=== PATIENT | female | born 1960 | race Caucasian/White ===

== ENCOUNTER → 2018-01-10 | Outpatient (CLI) | payer MEDICARE, OTHER ==
--- NOTE | 2018-01-10 14:22 | MR ---
EXAMINATION TYPE: MR foot LT wo con DATE OF EXAM: 01/10/2018 COMPARISON: None HISTORY: Left fifth toe delayed union fracture. Left fourth toe fracture. Recurrent plantar laceratio ns third through fifth toes. Left fifth toe osteomyelitis all per order. Ulcers left fourth and fifth toe with pain and swelling for over 6 weeks. Standard multiplanar, multisequence MRI departmental protocol Multiplanar, multisequence images of the left foot were acquired. FINDINGS: Post contrast imaging was not performed due to patient noncooperation and repetitive moving . Exam noted suboptimal due to significant patient motion on images acquired. Exam is essentially nondiagnostic as there is marked patient motion on images acquired. Marked flexio n in toes is present. IMPRESSION: Nondiagnostic study due to patient noncooperation and motion.
== END | disposition home or self-care (01) ==
LOC: RADMRIMAIN 13:06
PROVIDERS: ATTEND Podiatrist Foot & Ankle Surgery
DX: M86.8X7 Other osteomyelitis, ankle and foot (principal)

== ENCOUNTER 2018-01-30 10:10 | Day surgery (SDC) | payer MEDICARE, OTHER ==
--- NOTE | 2018-01-30 09:32 | P.GSHP ---
History of Present Illness H&P Date: 01/30/18 CHIEF COMPLAINT: Cholecystitis HISTORY OF PRESENT ILLNESS: The patient is a 57-year-old female who presents with history of epigastric including right upper quadrant abdominal pain. She underwent diagnostic studies for her gallbladder. Separately her clinical picture was consistent with cholecystitis. Now she presents for surgical intervention. She has history of cognitive delay. PAST MEDICAL HISTORY: Please see list PAST SURGICAL HISTORY: Please see list MEDICATIONS: Please see list ALLERGIES: Denies. SOCIAL HISTORY: No illicit drug use or recent tobacco use FAMILY HISTORY: Pertinent for gallbladder disease REVIEW OF ORGAN SYSTEMS: CONSTITUTIONAL: No reports of fevers or chills. HEENT: Denies any troubles with the vision or hearing. ENDOCRINE: Has hypothyroidism. No diabetes. RESPIRATORY: No recent pneumonias. CARDIOVASCULAR: Denies chest pain or palpitations GI: No blood in stools or constipation. MUSCULOSKELETAL: Has occasional joint pain including back pain. NEURO: No seizure disorders or headaches. No recent stroke. PSYCH: Has cognitive delay. GENITOURINARY: No active blood in urine. No urinary hesitancy. HEMATOLOGIC: No personal or family history of DVTs or pulmonary emboli. SKIN: No skin cancer. PHYSICAL EXAM: VITAL SIGNS: Afebrile vital signs stable GENERAL: Well-developed pleasant in no acute distress. HEENT: No scleral icterus. Extraocular movements grossly intact. Moist buccal mucosa. NECK: Supple without lymphadenopathy. CHEST: Unlabored respirations. Equal bilateral excursions. CARDIOVASCULAR: Regular rate regular rhythm rhythm. Distal 2+ pulses. ABDOMEN: Soft, nondistended. Tender along the epigastrium and right upper quadrant. MUSCULOSKELETAL: No clubbing, cyanosis, or edema. NEURO: Cranial nerves II to XII within normal limits. No focal or lateralizing signs. PSYCH: Alert and oriented to person, place and time. SKIN: Well-perfused good skin turgor. ASSESSMENT: 1. Epigastric and right upper quadrant abdominal pain 2. Chronic cholecystitis 3. Symptomatic gallstones. PLAN: 1. Will need a robotic cholecystectomy possible open. Benefits and risks were described. 2. Heparin for DVT prophylaxis 5000 units. 3. Antibiotic prophylaxis. Past Medical History Past Medical History: GERD/Reflux, Hearing Disorder / Deafness, Hypertension, Liver Disease, Neurologic Disorder, Skin Disorder Additional Past Medical History / Comment(s): TOURETTE'S, MENTALLY HANDICAPPED, NON-VERBAL; FALLS PURPOSEFULLY, HX FOOT FX 07/2017, IN W/C NOW FOR SAFETY. HEP B. LACKS ELASTICITY IN TOES, SKIN BREAKS OPEN. SEEN BY SHARON CRUZ FOR SURGICAL CLEARANCE, HAS 24 HOLTER MONITOR ON, PER CAREGIVER. History of Any Multi-Drug Resistant Organisms: None Reported Additional Past Surgical History / Comment(s): UNKNOWN Past Anesthesia/Blood Transfusion Reactions: Unable to Obtain Additional Psychological History / Comment(s): MENTALLY HANDICAPPED, NON-VERBAL Smoking Status: Unknown if ever smoked Past Alcohol Use History: None Reported Past Drug Use History: Unable to Obtain - Past Family History Father Family Medical History: Coronary Artery Disease (CAD) Medications and Allergies Home Medications Medication Instructions Recorded Confirmed Type Cetirizine HCl [Zyrtec] 10 mg PO DAILY@159901/23/18 01/23/18 History FLUoxetine HCL [PROzac] 60 mg PO DAILY 01/23/18 01/23/18 History Fluticasone Nasal [place] [Flonase 1 spray EA NOSTRIL DAILY@159901/23/18 History Nasal [place]] Gentian Ailin 1 applic TOPICAL Q7D 01/23/18 History Ibuprofen [Motrin] 600 mg PO TID@0700,1599,199901/23/18 01/23/18 History LORazepam [Ativan] 1 mg PO BID@0700,1600 01/23/18 01/23/18 History Lisinopril [Zestril] 5 mg PO DAILY@159901/23/18 01/23/18 History Mirabegron [Myrbetriq] 50 mg PO DAILY@159901/23/18 01/23/18 History Omeprazole [PriLOSEC] 40 mg PO DAILY@199901/23/18 01/23/18 History Ranitidine HCl [Zantac] 150 mg PO BID 01/23/18 01/23/18 History Sodium Chloride Tab 1 gm PO DAILY 01/23/18 01/23/18 History risperiDONE 1 mg PO DAILY@159901/23/18 01/23/18 History risperiDONE [RisperDAL] 2 mg PO DAILY@0700 01/23/18 01/23/18 History Allergies Allergy/AdvReac Type Severity Reaction Status Date / Time aspirin Allergy Unknown Verified 01/23/18 16:32 clarithromycin [From Biaxin] Allergy Unknown Verified 01/23/18 16:32 omega-3 acid ethyl esters Allergy Unknown Verified 01/23/18 18:05 Penicillins Allergy Unknown Verified 01/23/18 16:32 diazepam [From Valium] AdvReac MAKES HER Verified 01/23/18 16:32 HYPER VASCEZE Allergy Unknown Uncoded 01/23/18 16:32
[~2018-01-30 10:10] MED LIST: HEPARIN SODIUM,PORCINE 5,000 UNIT/ML 1 ML VIAL SQ ONE; INDOCYANINE GREEN 25 MG VIAL IV STA; ceFAZolin IN SWFI 2 GM/20 ML SYRINGE IVP ONE
[2018-01-30] MEDS ORDERED: LACTATED RINGERS 1,000 ML IV ONE (10:52)
[2018-01-30] MEDS ORDERED: ONDANSETRON 4 MG/2 ML VIAL IVP ONE (10:52)
[2018-01-30] MEDS ORDERED: DEXAMETHASONE SOD PHOSPHATE 10 MG/ML 1 ML VIAL IV ONE (10:53)
[2018-01-30 11:20] LABS: Anisocytosis Slight; Basophils % (A) 0 %; Eosinophils # (A) 0.1 k/uL (0-0.7); Eosinophils % (A) 3 %; HCT 37.6 % (34.0-46.0); HGB 11.7 gm/dL (11.4-16.0); Hypochromasia Slight; Lymphocytes # (A) 1.9 k/uL (1.0-4.8); Lymphocytes % (A) 34 %; MCH 27.9 pg (25.0-35.0); MCHC 31.2 g/dL (31.0-37.0); MCV 89.4 fL (80.0-100.0); Mean Platelet Volume 7.5; Monocytes # (A) 0.8 k/uL (0-1.0); Monocytes % (A) 14 %; Neutrophils # (A) 2.7 k/uL (1.3-7.7); Neutrophils % (A) 46 %; Platelet Count 242 k/uL (150-450); RBC 4.21 m/uL (3.80-5.40); RDW 16.5 % (11.5-15.5); WBC 5.7 k/uL (3.8-10.6)
[2018-01-30 11:35] LABS: ALT 32 U/L (9-52); AST 42 U/L (14-36); Albumin 4.1 g/dL (3.5-5.0); Alkaline Phosphatase 127 U/L (38-126); Anion Gap 9 mmol/L; Blood Urea Nitrogen 13 mg/dL (7-17); Calcium 9.5 mg/dL (8.4-10.2); Carbon Dioxide 27 mmol/L (22-30); Chloride 103 mmol/L (98-107); Glucose 80 mg/dL (74-99); Sodium 139 mmol/L (137-145); Total Bilirubin 0.5 mg/dL (0.2-1.3); Total Protein 7.4 g/dL (6.3-8.2)
[2018-01-30] MEDS ORDERED: BUPIVACAIN-EPI 0.25%-1:200,000 30 ML VIAL SQ ONE (12:04)
[2018-01-30] MEDS ORDERED: LIDOCAINE 1% INJ 10MG/ML (20 ML MDV) ONE (13:25)
[2018-01-30] MEDS ORDERED: ROCURONIUM BROMIDE 10 MG/ML 10 ML VIAL IV ONE (13:25)
[2018-01-30] MEDS ORDERED: SUCCINYLCHOLINE CHLORIDE 100 MG/5 ML SYR IV ONE (13:25)
[2018-01-30] MEDS ORDERED: NEOSTIGMINE 1 MG/ML 10 ML VIAL ONE (13:25)
[2018-01-30] MEDS ORDERED: GLYCOPYRROLATE 0.2 MG/ML 2 ML VIAL ONE (13:25)
[2018-01-30] MEDS ORDERED: fentaNYL (PF) 50 MCG/ML 2 ML AMP ONE (13:25)
[2018-01-30] MEDS ORDERED: INDOCYANINE GREEN 25 MG VIAL IV ONE (13:25)
[2018-01-30] MEDS ORDERED: KETOROLAC 30 MG/ML 1 ML VIAL ONE (13:25)
[2018-01-30] MEDS ORDERED: PROPOFOL 10 MG/ML 20 ML VIAL IV ONE (13:25)
--- NOTE | 2018-01-30 14:36 | P.OP ---
Date of Procedure: 01/30/18 Description of Procedure: SURGEON: DANIELA CANALES MD PREOPERATIVE DIAGNOSES: 1. Symptomatic gallstones 2. Chronic cholecystitis 3. Cognitive delay 4. Seizure disorder 5. Hypertensive heart disease POSTOPERATIVE DIAGNOSES: 1. Symptomatic gallstones 2. Chronic cholecystitis 3. Cognitive delay 4. Seizure disorder 5. Hypertensive heart disease OPERATION: Robotic-assisted da Gideon Xi laparoscopic cholecystectomy, multiport with FIREFLY ESTIMATED BLOOD LOSS: 5 mL. SPECIMENS REMOVED: Gallbladder. COMPLICATIONS: None. OPERATIVE FINDINGS: 1. Acute cholecystitis with cystic duct obstruction from gallstone impaction. 2. Common bile duct demonstrating patency with firefly 3. Patient may need follow-up with GI for persistent stones INDICATIONS: The patient is a 57-year-old female who presents with gallstones. Surgical intervention with a laparoscopic cholecystectomy was described at length including injury to the biliary tree, bleeding, infection, need for further surgery. Informed consent was obtained. Robotic assisted laparoscopic approach was described. Benefits and risks of the procedure including but not limited to bleeding, infection, injury to the biliary tree was described. Informed consent was obtained. DESCRIPTION OF PROCEDURE: Patient was brought to the operating room, placed in supine position. After general induction, the abdomen had been prepped and draped in standard sterile fashion. The robotic da Gideon XI system was primed. After a timeout protocol was performed, the patient had been prepped and draped in standard sterile fashion. The patient was injected with indocyanine green. A 5 mm 0 degrees laparoscopic trocar entry was performed along the left upper quadrant. The abdomen insufflated to 15 mmHg pressure which she tolerated well. Diagnostic laparoscopy demonstrated no injury to bowel viscera or mesentery. The liver surface was unremarkable. Next, two 8 mm robotic ports were placed along the right upper abdomen. The camera 8-mm port was maintained along the epigastrium. Another 8 mm port was placed along the left upper abdominal wall after exchanging the 5 mm port. Please note that the ports were placed at least 10 to 15 cm away from the target anatomy of the gallbladder. The robot was docked along the left lateral abdomen. The patient was repositioned in reverse Trendelenburg position. Using a grasper for arm 3, a grasper for arm 4, including hook cautery for arm 1 , the robotic system was docked and primed as described. Instruments were interchanged by the specimen preparation assistant including hook cautery, Bovie cautery and clip appliers. I had sat at the console. Adhesions were identified along the infundibulum of the gallbladder and addressed using hook cautery. The gallbladder fundus was retracted over the dome of the liver. Initial attention was brought to the infundibulum which was gently retracted in the inferior lateral approach. Using a grasper, the cystic duct including the cystic artery was carefully skeletonized. FIREFLY was used to identify the cystic artery and cystic structures. Large PLASTIC clips were used throughout the entire case. Using a clip loom changer 2 clips were placed proximally, and 1 clip was placed distally along the cystic duct and then cauterized with the cautery. Again care was taken to avoid any injury to the biliary tree as the common bile duct was clearly visualized during this portion of dissection. Next, the cystic artery was similarly clipped and cauterized. Electro-Bovie cautery was used to remove the gallbladder from the hepatic fossa. Hemostasis was checked and found to be adequate. The robot was undocked. I re-scrubbed into the case. Using a 10 mm Endo Catch bag via the left upper quadrant incision, the specimen was removed from the abdominal cavity. All pneumoperitoneum instruments were evacuated from the abdominal cavity. The incisions were reapproximated using 4-0 Monocryl in an interrupted subcuticular fashion. Fascial defects were less than 8 mm in size. Please note along the trocar sites, local anesthetic was placed as a field block prior to insertion of all instruments. Liquid glue was applied to the skin. At the end of the procedure needle, sponge, and instrument count had been verified correct by the surgical nurse practitioner. The patient was transferred to postanesthesia care unit in stable condition. Intraoperative films were shared with the patient's family who were very pleased with the level of care. Console time 14 minutes Plan - Discharge Summary New Discharge Prescriptions: No Action Omeprazole [PriLOSEC] 40 mg PO DAILY@2000 Fluticasone Nasal [place] [Flonase Nasal [place]] 1 spray EA NOSTRIL DAILY@1600 risperiDONE [RisperDAL] 2 mg PO DAILY@0700 risperiDONE 1 mg PO DAILY@1600 Ranitidine HCl [Zantac] 150 mg PO BID Ibuprofen [Motrin] 600 mg PO TID@0700,1600,2000 Sodium Chloride Tab 1 gm PO DAILY Cetirizine HCl [Zyrtec] 10 mg PO DAILY@1600 Mirabegron [Myrbetriq] 50 mg PO DAILY@1600 Lisinopril [Zestril] 5 mg PO DAILY@1600 LORazepam [Ativan] 1 mg PO BID@0700,1600 FLUoxetine HCL [PROzac] 60 mg PO DAILY Gentian Ailin 1 applic TOPICAL Q7D Discharge Medication List Cetirizine HCl [Zyrtec] 10 mg PO DAILY@159901/23/18 [History] FLUoxetine HCL [PROzac] 60 mg PO DAILY 01/23/18 [History] Fluticasone Nasal [place] [Flonase Nasal [place]] 1 spray EA NOSTRIL DAILY@1599 [History] Gentian Ailin 1 applic TOPICAL Q7D 01/23/18 [History] Ibuprofen [Motrin] 600 mg PO TID@0700,1600,199901/23/18 [History] LORazepam [Ativan] 1 mg PO BID@0700,1600 01/23/18 [History] Lisinopril [Zestril] 5 mg PO DAILY@159901/23/18 [History] Mirabegron [Myrbetriq] 50 mg PO DAILY@159901/23/18 [History] Omeprazole [PriLOSEC] 40 mg PO DAILY@199901/23/18 [History] Ranitidine HCl [Zantac] 150 mg PO BID 01/23/18 [History] Sodium Chloride Tab 1 gm PO DAILY 01/23/18 [History] risperiDONE 1 mg PO DAILY@159901/23/18 [History] risperiDONE [RisperDAL] 2 mg PO DAILY@0700 01/23/18 [History]
[2018-01-30 14:44] VITALS: TEMP 97.6
[2018-01-30] MEDS ORDERED: hydrALAZINE HCL 20 MG/ML 1 ML VIAL IVP ONE (15:03)
[2018-01-30 16:04] VITALS: PULSE 74
[2018-01-30 16:44] VITALS: BP 114/66; RESP 18
== END 2018-01-30 17:38 | disposition home or self-care (01) ==
LOC: OR 10:10 → EEVIPCON 11:30 → OR 17:38
PROVIDERS: ATTEND Surgery Plastic and Reconstructive Surgery
DX: K80.13 Calculus of gallbladder with acute and chronic cholecystitis with obstruction (principal); K66.0 Peritoneal adhesions (postprocedural) (postinfection); F79 Unspecified intellectual disabilities; G40.909 Epilepsy, unspecified, not intractable, without status epilepticus; I11.9 Hypertensive heart disease without heart failure; I42.9 Cardiomyopathy, unspecified; E78.2 Mixed hyperlipidemia; F95.2 Tourette's disorder; K21.9 Gastro-esophageal reflux disease without esophagitis; H91.90 Unspecified hearing loss, unspecified ear; L98.9 Disorder of the skin and subcutaneous tissue, unspecified; B19.10 Unspecified viral hepatitis B without hepatic coma; Z79.1 Long term (current) use of non-steroidal anti-inflammatories (NSAID); Z79.51 Long term (current) use of inhaled steroids; Z79.899 Other long term (current) drug therapy; Z88.6 Allergy status to analgesic agent; Z88.1 Allergy status to other antibiotic agents; Z88.0 Allergy status to penicillin; Z88.8 Allergy status to other drugs, medicaments and biological substances
CPT/HCPCS: 88304; 80053; 85025; 47562; J0360; J1644; J1100; J2710; J2405; J2001; J3010; J1885; J0330; J2704; J0690